=== PATIENT | male | born 1950 | race Asian ===

== ENCOUNTER 2017-12-24 23:42 | Emergency (ER) | payer OTHER ==
[~2017-12-24] VITALS: Ht 162.6 cm; Wt 57.0 kg
[~2017-12-24 23:42] MED LIST: AMOX875 PO; DICL75 PO; MEDR4PAK3 PO; ROBA750T3 PO; VENTAER INH
[2017-12-24 23:45] VITALS: BP 117/78; PULSE 68; RESP 18; TEMP 97.8; O2SAT 97
[2017-12-24] MEDS ORDERED: SODIUM CHLOR 0.9% 1000 ML INJ 1,000 ML IV ONE (23:58)
[2017-12-25] MEDS ORDERED: ONDANSETRON HCL 4 MG/2 ML VIAL IVP ONE
[2017-12-25] MEDS ORDERED: SODIUM CHLORIDE 0.9% FLUSH 10 ML FLUSH IVF PRN
[2017-12-25 00:30] LABS: AUTOMATED NEUTROPHIL # 2.9 TH/MM3 (1.8-7.7); BASOPHIL % 0.5 % (0.0-2.0); EOSINOPHIL # 0.2 TH/MM3 (0-0.4); EOSINOPHIL % 3.6 % (0.0-4.0); HEMATOCRIT 43.2 % (39.0-51.0); HEMOGLOBIN 14.4 GM/DL (13.0-17.0); LYMPH % 42.8 % (9.0-44.0); LYMPHOCYTE # 2.6 TH/MM3 (1.0-4.8); MEAN CELL VOLUME 93.7 FL (80.0-100.0); MEAN CORPUSCULAR HEMOGLOBIN 31.3 PG (27.0-34.0); MEAN CORPUSCULAR HGB CONC 33.4 % (32.0-36.0); MONO % 6.8 % (0.0-8.0); MONOCYTE # 0.4 TH/MM3 (0-0.9); NEUT % 46.3 % (16.0-70.0); PLATELET COUNT 169 TH/MM3 (150-450); RED BLOOD COUNT 4.61 MIL/MM3 (4.50-5.90); RED CELL DISTRIBUTION WIDTH 14.5 % (11.6-17.2); WHITE BLOOD COUNT 6.1 TH/MM3 (4.0-11.0)
[2017-12-25 00:39] LABS: CHLORIDE 105 MEQ/L (98-107); SODIUM (NA) 138 MEQ/L (136-145)
--- NOTE | 2017-12-25 00:40 | RADRPT ---
EXAM DATE/TIME: 12/25/2017 00:19 [facility] COMPARISON: No previous studies available for comparison. INDICATIONS : Palpitations. MEDICAL HISTORY : None. SURGICAL HISTORY : None. ENCOUNTER: Initial ACUITY: 1 day PAIN SCORE: 3/10 LOCATION: Bilateral chest FINDINGS: A single portable frontal view of the chest is a vague parenchymal opacity within the right lung base . Left lung is clear. No effusions. Heart is normal in size. CONCLUSION: Right lower lobe infiltrate. Zoltan Astorga Jr., MD on December 25, 2017 at 0:39 Board Certified Radiologist. This report was verified electronically.
[2017-12-25 00:42] LABS: ALBUMIN 3.5 GM/DL (3.4-5.0); CALCIUM 8.3 MG/DL (8.5-10.1)
[2017-12-25] MEDS ORDERED: METF500T PO (00:42)
[2017-12-25 00:43] LABS: BLOOD UREA NITROGEN 8 MG/DL (7-18); GLUCOSE,RANDOM 85 MG/DL (74-106); MAGNESIUM 2.4 MG/DL (1.5-2.5)
[2017-12-25 00:46] LABS: ALT (GPT) 24 U/L (12-78); AST (GOT) 27 U/L (15-37); CREATININE 0.72 MG/DL (0.60-1.30); GLOMERULAR FILTRATION RATE 109 ML/MIN (>89)
[2017-12-25 00:47] LABS: TOTAL BILIRUBIN ADULT 0.3 MG/DL (0.2-1.0); TOTAL PROTEIN 7.7 GM/DL (6.4-8.2)
[2017-12-25 00:48] LABS: ALKALINE PHOSPHATASE 72 U/L (45-117)
[2017-12-25 00:51] LABS: BILIRUBIN, URINE NEG (NEG); BLOOD, URINE NEG (NEG); GLUCOSE,URINE NEG (NEG); KETONE, URINE NEG (NEG); NITRITE,URINE NEG (NEG); TROPONIN I LESS THAN 0.02 NG/ML (0.02-0.05); URINE LEUKOCYTE ESTERASE NEG (NEG)
[2017-12-25 00:52] LABS: URINE COLOR STRAW (YELLW/STRAW)
[2017-12-25 00:55] LABS: RBC, URINE 0-2 /hpf (0-3); SQUAMOUS EPITHELIAL CELL URINE 0-5 /hpf (0-5); WBC, URINE 0-2 /hpf (0-5)
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
[2017-12-25 01:04] VITALS: BP 118/82; PULSE 67; RESP 16; O2SAT 98
[2017-12-25 01:07] VITALS: RESP 16; O2SAT 98
[2017-12-25 02:00] VITALS: BP 108/63; PULSE 66; RESP 16; O2SAT 96
[2017-12-25] MEDS ORDERED: KETOROLAC TROMETHAMINE 30 MG/ML (IVP) VIAL IV PUSH ONE (02:00)
[2017-12-25 03:00] VITALS: BP 113/69; PULSE 64; RESP 16; O2SAT 96
[2017-12-25 03:00] LABS: ACETAMINOPHEN LESS THAN 2.0 MCG/ML (10.0-30.0)
[2017-12-25] MEDS ORDERED: VENTAER INH (04:00)
[2017-12-25] MEDS ORDERED: ZITHTAB PO (04:00)
[2017-12-25] MEDS ORDERED: ROBA750T PO (04:00)
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
[2017-12-25 04:02] VITALS: RESP 16
[2017-12-25 04:37] VITALS: BP 115/74
--- NOTE | 2017-12-25 16:42 | EKG ---
Date Performed: 12/25/2017 Time Performed: 00:11:11 PTAGE: 67 years EKG: Sinus rhythm NORMAL ECG NO PREVIOUS TRACING DOCTOR: Austin Edge Interpretating Date/Time 12/25/2017 16:44:41
== END 2017-12-25 04:50 | disposition home or self-care (01) ==
LOC: PHED 23:42
DX: S09.90XA Unspecified injury of head, initial encounter (principal); S16.1XXA Strain of muscle, fascia and tendon at neck level, initial encounter; F10.129 Alcohol abuse with intoxication, unspecified; R91.8 Other nonspecific abnormal finding of lung field; E11.9 Type 2 diabetes mellitus without complications; M50.322 Other cervical disc degeneration at C5-C6 level; M50.323 Other cervical disc degeneration at C6-C7 level; R11.2 Nausea with vomiting, unspecified; V43.52XA Car driver injured in collision with other type car in traffic accident, initial encounter
CPT/HCPCS: 70450; 71045; 72125; 80053; 80307; 81001; 82550; 82552; 83735; 84484; 85025; 85610; 85730; 93005; 96361; 96374; 96375; 99285; J1885; J2405; J7030